=== PATIENT | male | born 1965 | race Caucasian/White ===

== ENCOUNTER → 2017-09-24 | Day surgery (SDC) | payer OTHER ==
[~2017-09-24] MED LIST: HYDROmorphone 2 MG/ML VIAL IV; LIDOCAINE 1% PF 2 ML VIAL. ID; LIDOCAINE 2% 100 MG/5 ML SYRINGE.; MORPHINE SULFATE 2 MG/ML DISP.SYRIN. IV; ONDANSETRON PF 4 MG/2 ML VIAL. IV; PROCHLORPERAZINE 10 MG/2 ML VIAL. IV; PROPOFOL 20 ML IV; fentaNYL PF VIAL 100 MCG/2 ML VIAL IV
[2017-09-24] MEDS: IV RINGERS,LACTATED 1000ML 1,000 ML IV ×2 (07:03)
[2017-09-24 08:11] LABS: POC GLUCOSE 110 mg/dL (70-99)
== END | disposition home or self-care (01) ==
LOC: SURG 06:59
DX: K29.50 Unspecified chronic gastritis without bleeding (principal); T18.2XXA Foreign body in stomach, initial encounter; E78.00 Pure hypercholesterolemia, unspecified; K21.9 Gastro-esophageal reflux disease without esophagitis; E66.9 Obesity, unspecified; F41.9 Anxiety disorder, unspecified; Z86.69 Personal history of other diseases of the nervous system and sense organs; Z98.890 Other specified postprocedural states; Z86.718 Personal history of other venous thrombosis and embolism; Z87.39 Personal history of other diseases of the musculoskeletal system and connective tissue; Z72.89 Other problems related to lifestyle; Z87.891 Personal history of nicotine dependence
CPT/HCPCS: 43235; 82962; J2704

== ENCOUNTER 2018-01-06 08:12 | Inpatient (IN) | payer OTHER ==
[2018-01-06 08:56] LABS: ADD MAN DIFF? NO
[2018-01-06 09:01] LABS: BASO % 1 % (0-3); EOS # 0.2 x10^3/uL (0.0-0.7); EOS % 4 % (0-3); HEMATOCRIT 45.2 % (39.0-53.0); HEMOGLOBIN 15.5 g/dL (13.0-17.5); LYMPH # 2.4 x10^3/uL (1.0-4.8); LYMPH % 42 % (24-48); MEAN CORPUSCULAR HEMOGLOBIN 30 pg (25-35); MEAN CORPUSCULAR HGB CONC 34 g/dL (31-37); MEAN CORPUSCULAR VOLUME 88 fL (79-100); MONO # 0.4 x10^3/uL (0.0-1.1); MONO % 7 % (0-9); NEUT # 2.6 x10^3uL (1.8-7.7); NEUT % 46 % (31-73); PLATELET COUNT 209 x10^3/uL (140-400); RED BLOOD COUNT 5.11 x10^6/uL (4.30-5.70); RED CELL DISTRIBUTION WIDTH 13.8 % (11.5-14.5); WHITE BLOOD COUNT 5.6 x10^3/uL (4.0-11.0)
[2018-01-06 09:05] LABS: BILIRUBIN,URINE NEGATIVE (NEG); CLARITY,URINE CLOUDY; COLOR,URINE YELLOW; GLUCOSE,URINE NEGATIVE (NEG); NITRITE,URINE NEGATIVE (NEG); PH,URINE 7.5; PROTEIN,URINE NEGATIVE (NEG-TRACE)
[2018-01-06] MEDS: IV NORMAL SALINE 1000ML BAG 1,000 ML IV ×2 (09:06→16:18)
[2018-01-06 09:13] LABS: INR 2.3 (0.8-1.1); PARTIAL THROMBOPLASTIN TIME 47 SEC (24-38); PROTHROMBIN TIME PATIENT 24.5 SEC (11.7-14.0)
[2018-01-06 09:13] LABS: ETHANOL < 10 mg/dL (0-10)
[2018-01-06 09:14] LABS: ANION GAP 8 (6-14); BLOOD UREA NITROGEN 18 mg/dL (8-26); BUN/CREATININE RATIO 12 (6-20); CALCIUM 9.3 mg/dL (8.5-10.1); CARBON DIOXIDE 27 mmol/L (21-32); CHLORIDE 107 mmol/L (98-107); CREATININE 1.5 mg/dL (0.7-1.3); GFR 49.1; GLUCOSE 96 mg/dL (70-99); POTASSIUM 4.3 mmol/L (3.5-5.1); SODIUM 142 mmol/L (136-145)
[2018-01-06 09:15] LABS: BARBITURATES NEG (NEG); BENZODIAZEPINES POS (NEG); CANNABINOIDS NEG (NEG); COCAINE NEG (NEG); METHADONE NEG (NEG); OPIATES POS (NEG); PHENCYCLIDINE NEG (NEG)
[2018-01-06 09:16] LABS: AMPHETAMINE/METHAMPHETAMINE NEG (NEG); ETHANOL, URINE NEG (NEG)
[2018-01-06 09:18] LABS: TROPONINI < 0.017 ng/mL (0.000-0.055)
[2018-01-06 09:19] LABS: ALBUMIN 3.7 g/dL (3.4-5.0); ALK PHOS 48 U/L (46-116); ALT (SGPT) 40 U/L (16-63); AST (SGOT) 28 U/L (15-37); CREATINE KINASE 247 U/L (39-308); TOTAL BILIRUBIN 0.7 mg/dL (0.2-1.0); TOTAL PROTEIN 7.3 g/dL (6.4-8.2)
[2018-01-06 09:21] LABS: AMORPHOUS SEDIMENT,UR PRESENT /HPF; BACTERIA,URINE 0 /HPF (0-FEW); RBC,URINE >40 /HPF (0-2); WBC,URINE 0 /HPF (0-4)
[2018-01-06 09:22] LABS: LACTIC ACID 0.9 mmol/L (0.4-2.0)
[2018-01-06 09:32] LABS: MYOGLOBIN 136 ng/mL (16-96)
[2018-01-06 09:41] LABS: NT-PRO BNP 49 pg/mL (0-124)
[2018-01-06] MEDS: fentaNYL PF VIAL 100 MCG/2 ML VIAL IV (10:04)
[2018-01-06] MEDS: KETOROLAC 30 MG/ML INJ. IV ×2 (11:07→21:35)
[2018-01-06] MEDS: TAMSULOSIN 0.4 MG CAP.ER.24H. PO (11:07)
[2018-01-06] MEDS ORDERED: ACETAMINOPHEN 325 MG TABLET. PO (11:30)
[2018-01-06] MEDS ORDERED: MORPHINE SULFATE 4 MG/ML DISP.SYRIN. IV (11:30)
[2018-01-06] MEDS ORDERED: ONDANSETRON PF 4 MG/2 ML VIAL. IV ×2 (11:30→12:30)
[2018-01-06 12:59] LABS: PLT ESTIMATE ADEQUATE (ADEQUATE)
[2018-01-06] MEDS: PREGABALIN 75 MG CAPSULE PO ×2 (13:00→21:35)
[2018-01-06] MEDS: PANTOPRAZOLE 40 MG TABLET.DR. PO (13:00)
[2018-01-06] MEDS: METOPROLOL TART IMMED RELEASE 50 MG TABLET. PO (13:00)
[2018-01-06] MEDS: RIVAROXABAN 10 MG TABLET. PO (13:00)
[2018-01-06] MEDS ORDERED: TOPIRAMATE 100 MG TABLET. PO (21:00)
[2018-01-06] MEDS: FENOFIBRATE,MICRONIZED 134 MG CAPSULE PO (21:35)
[2018-01-06] MEDS: TOPIRAMATE 100 MG TABLET. PO (21:35)
[2018-01-06] MEDS: tiZANidine 4 MG TABLET. PO (21:35)
[2018-01-06] MEDS: DULoxetine HCL 30 MG CAPSULE.DR PO (21:36)
[2018-01-07 04:33] LABS: ADD MAN DIFF? NO
[2018-01-07 04:42] LABS: BASO % 1 % (0-3); EOS # 0.2 x10^3/uL (0.0-0.7); EOS % 4 % (0-3); HEMATOCRIT 41.2 % (39.0-53.0); HEMOGLOBIN 14.3 g/dL (13.0-17.5); LYMPH # 2.8 x10^3/uL (1.0-4.8); LYMPH % 58 % (24-48); MEAN CORPUSCULAR HEMOGLOBIN 31 pg (25-35); MEAN CORPUSCULAR HGB CONC 35 g/dL (31-37); MEAN CORPUSCULAR VOLUME 89 fL (79-100); MONO # 0.4 x10^3/uL (0.0-1.1); MONO % 8 % (0-9); NEUT # 1.4 x10^3uL (1.8-7.7); NEUT % 30 % (31-73); PLATELET COUNT 174 x10^3/uL (140-400); RED BLOOD COUNT 4.66 x10^6/uL (4.30-5.70); RED CELL DISTRIBUTION WIDTH 14.1 % (11.5-14.5); WHITE BLOOD COUNT 4.8 x10^3/uL (4.0-11.0)
[2018-01-07 05:36] LABS: ANION GAP 9 (6-14); BLOOD UREA NITROGEN 18 mg/dL (8-26); CALCIUM 8.4 mg/dL (8.5-10.1); CARBON DIOXIDE 25 mmol/L (21-32); CHLORIDE 111 mmol/L (98-107); CREATININE 1.5 mg/dL (0.7-1.3); GFR 49.1; GLUCOSE 100 mg/dL (70-99); POTASSIUM 3.7 mmol/L (3.5-5.1); SODIUM 145 mmol/L (136-145)
[2018-01-07] MEDS: PANTOPRAZOLE 40 MG TABLET.DR. PO (08:00)
[2018-01-07] MEDS: PREGABALIN 75 MG CAPSULE PO (08:27)
[2018-01-07] MEDS: KETOROLAC 30 MG/ML INJ. IV (08:28)
[2018-01-07] MEDS: METOPROLOL TART IMMED RELEASE 50 MG TABLET. PO (09:00)
[2018-01-07] MEDS: TAMSULOSIN 0.4 MG CAP.ER.24H. PO (09:20)
== END 2018-01-07 14:10 | disposition home or self-care (01) | DRG 88 ==
LOC: ER 08:12 → 6 SOUTH 11:02
DX: S06.0X0A Concussion without loss of consciousness, initial encounter (principal); G93.40 Encephalopathy, unspecified; Z68.41 Body mass index [BMI] 40.0-44.9, adult; K31.84 Gastroparesis; N20.2 Calculus of kidney with calculus of ureter; K76.0 Fatty (change of) liver, not elsewhere classified; E66.9 Obesity, unspecified; E78.5 Hyperlipidemia, unspecified; G43.909 Migraine, unspecified, not intractable, without status migrainosus; G89.29 Other chronic pain; I10 Essential (primary) hypertension; M79.7 Fibromyalgia; R31.0 Gross hematuria; Z79.01 Long term (current) use of anticoagulants; Z79.891 Long term (current) use of opiate analgesic; Z82.49 Family history of ischemic heart disease and other diseases of the circulatory system; Z87.820 Personal history of traumatic brain injury; F32.9 Major depressive disorder, single episode, unspecified; Z86.718 Personal history of other venous thrombosis and embolism; V84.9XXA Unspecified occupant of special agricultural vehicle injured in nontraffic accident, initial encounter; Y93.89 Activity, other specified; Y92.89 Other specified places as the place of occurrence of the external cause; Y99.8 Other external cause status
CPT/HCPCS: 36415; 70450; 71045; 74018; 74176; 80048; 80053; 80307; 81001; 82550; 83605; 83874; 83880; 84484; 85025; 85610; 85730; 86850; 86900; 86901; 93005; 96361; 96374; 96375; 99285; 99285-25; G0480; J1885; J3010; J7030

== ENCOUNTER → 2018-03-18 | Outpatient (CLI) | payer OTHER | END | disposition home or self-care (01) | LOC: ECHO 10:44 | DX: R00.1 Bradycardia, unspecified (principal) | CPT/HCPCS: 93306 ==

== ENCOUNTER 2018-03-23 06:56 | Emergency (ER) | payer OTHER ==
[2018-03-23 07:42] LABS: ADD MAN DIFF? NO
[2018-03-23 07:44] LABS: BASO # 0.1 x10^3/uL (0.0-0.2); BASO % 1 % (0-3); EOS # 0.3 x10^3/uL (0.0-0.7); EOS % 5 % (0-3); HEMATOCRIT 47.4 % (39.0-53.0); HEMOGLOBIN 16.3 g/dL (13.0-17.5); LYMPH # 2.7 x10^3/uL (1.0-4.8); LYMPH % 51 % (24-48); MEAN CORPUSCULAR HEMOGLOBIN 31 pg (25-35); MEAN CORPUSCULAR HGB CONC 34 g/dL (31-37); MEAN CORPUSCULAR VOLUME 89 fL (79-100); MONO # 0.4 x10^3/uL (0.0-1.1); MONO % 8 % (0-9); NEUT # 1.8 x10^3uL (1.8-7.7); NEUT % 35 % (31-73); PLATELET COUNT 181 x10^3/uL (140-400); RED BLOOD COUNT 5.34 x10^6/uL (4.30-5.70); RED CELL DISTRIBUTION WIDTH 13.8 % (11.5-14.5); WHITE BLOOD COUNT 5.3 x10^3/uL (4.0-11.0)
[2018-03-23 07:52] LABS: INR 1.4 (0.8-1.1); PROTHROMBIN TIME PATIENT 16.5 SEC (11.7-14.0)
[2018-03-23 08:02] LABS: ANION GAP 8 (6-14); BLOOD UREA NITROGEN 15 mg/dL (8-26); BUN/CREATININE RATIO 12 (6-20); CALCIUM 9.1 mg/dL (8.5-10.1); CARBON DIOXIDE 28 mmol/L (21-32); CHLORIDE 104 mmol/L (98-107); CREATININE 1.3 mg/dL (0.7-1.3); GLUCOSE 126 mg/dL (70-99); POTASSIUM 3.6 mmol/L (3.5-5.1); SODIUM 140 mmol/L (136-145)
[2018-03-23 08:07] LABS: TROPONINI < 0.017 ng/mL (0.000-0.055)
[2018-03-23 08:14] LABS: ALBUMIN 3.8 g/dL (3.4-5.0); ALBUMIN/GLOBULIN RATIO 1.1 (1.0-1.7); ALK PHOS 48 U/L (46-116); ALT (SGPT) 53 U/L (16-63); AST (SGOT) 28 U/L (15-37); MAGNESIUM 1.8 mg/dL (1.8-2.4); THYROID STIM HORMONE (TSH) 1.996 uIU/mL (0.358-3.74); TOTAL BILIRUBIN 0.7 mg/dL (0.2-1.0); TOTAL PROTEIN 7.4 g/dL (6.4-8.2)
[2018-03-23 08:16] LABS: NT-PRO BNP 30 pg/mL (0-124)
[2018-03-23 08:16] LABS: CKMB INDEX 0.8 % (0-4); CKMB MASS 1.5 ng/mL (0.0-3.6); CREATINE KINASE 179 U/L (39-308)
== END 2018-03-23 08:53 | disposition home or self-care (01) ==
LOC: ER 06:56
DX: I49.3 Ventricular premature depolarization (principal); I10 Essential (primary) hypertension
CPT/HCPCS: 36415; 71045; 80053; 82553; 83735; 83880; 84100; 84439; 84443; 84484; 85025; 85610; 93005; 99285-25

== ENCOUNTER 2021-06-10 16:25 | Observation (INO) | payer OTHER ==
[~2021-06-10] VITALS: Ht 194.3 cm; Wt 164.0 kg
[~2021-06-10 16:25] MED LIST changes: +ALPR1TAB2 PO; +CEFD300C PO; +CYCL10TA2 PO; +DILT180C2 PO; +DULO60CA7 PO; +ERYT500T17 PO; +FENO145T3 PO; +GEMF600T20 PO; -HYDROmorphone 2 MG/ML VIAL IV; +LANS30CA66 PO; -LIDOCAINE 1% PF 2 ML VIAL. ID; -LIDOCAINE 2% 100 MG/5 ML SYRINGE.; +METO50TA6 PO; +MOME17SP NS; +MORP30TA83 PO; -MORPHINE SULFATE 2 MG/ML DISP.SYRIN. IV; -ONDANSETRON PF 4 MG/2 ML VIAL. IV; +OXYC10TA PO; +OXYC15TA61 PO; +PREG200C PO; -PROCHLORPERAZINE 10 MG/2 ML VIAL. IV; -PROPOFOL 20 ML IV; +RIVA10TA PO; +TIZA-58 PO; +TIZA4TAB2 PO; +TOBR5DRO6 NAS; +TOPI100T42 PO; -fentaNYL PF VIAL 100 MCG/2 ML VIAL IV
--- NOTE | 2021-06-10 16:39 | ED.ADGEN ---
Past Medical History Past Medical History: DVT, Fibromyalgia, Hypertension, Other Additional Past Medical Histor: gastroporesis Past Surgical History: Other Additional Past Surgical Histo: cervical fusion x2, sinus surgery x7, hernia repair, right knee MCL repair Smoking Status: Never Smoker Alcohol Use: None Drug Use: None General Adult HPI: HPI: Patient is a 55-year-old male who arrives via EMS after experiencing a syncopal episode while at his primary care physician's office. Patient was visiting his primary care physician for routine visit and reports in route he began feeling lightheaded and dizzy. Patient reports he exited his automobile and went to his primary care's office when he evidently lost consciousness. His is present and states he was probably unconscious for roughly 5 minutes. Upon regaining consciousness the patient was returned to his normal level of functioning. The patient states since yesterday he has had gross hematuria as well as suprapubic pain/pressure. The patient does take blood thinners and has a history of kidney stones. Patient states while he did pass out, he has not had any history of chest pain or shortness of air. He further denies any history of recent illness. Moreover he denies any neurological change from the standpoint of any sensory or motor compromise. Additionally he denies being dizzy now. He is awake, alert and nontoxic-appearing. Review of Systems: Review of Systems: Constitutional: Reports fatigue. Denies fever or chills. [] Eyes: Denies change in visual acuity. [] HENT: Denies nasal congestion or sore throat. [] Respiratory: Denies cough or shortness of breath. [] Cardiovascular: Reports syncope. Denies chest pain or edema. [] GI: Denies abdominal pain, nausea, vomiting, bloody stools or diarrhea. [] : Reports hematuria with suprapubic pain. Denies dysuria. [] Musculoskeletal: Denies back pain or joint pain. [] Integument: Denies rash. [] Neurologic: Denies headache, focal weakness or sensory changes. [] Endocrine: Denies polyuria or polydipsia. [] Lymphatic: Denies swollen glands. [] Psychiatric: Denies depression or anxiety. [] Allergies: Allergies: Physical Exam: PE: Constitutional: Well developed, well nourished, no acute distress, non-toxic appearance. [] HENT: Normocephalic, atraumatic, bilateral external ears normal, oropharynx moist, no oral exudates, nose normal. [] Eyes: PERRLA, EOMI, conjunctiva normal, no discharge. [] Neck: Normal range of motion, no tenderness, supple, no stridor. [] Cardiovascular:Heart rate regular rhythm, no murmur [] Lungs & Thorax: Bilateral breath sounds clear to auscultation [] Abdomen: Bowel sounds normal, soft, no tenderness, no masses, no pulsatile masses. [] Skin: Warm, dry, no erythema, no rash. [] Back: No tenderness, no CVA tenderness. [] Extremities: No tenderness, no cyanosis, no clubbing, ROM intact, no edema. [] Neurologic: Alert and oriented X 3, normal motor function, normal sensory function, no focal deficits noted. [] Psychologic: Affect normal, judgement normal, mood normal. [] Current Patient Data: Vital Signs: Vital Signs Date Time Temp Pulse Resp B/P (MAP) Pulse Ox O2 Delivery O2 Flow Rate FiO2 06/10/21 16:35 99.4 68 18 172/88 (116) 99 Room Air 99.4 EKG: EKG: [] EKG was obtained at 1630 hrs. reveals a normal sinus rhythm with ventricular rate 70 bpm. There is left axis deviation present. There are no acute ST/T wave changes to denote ischemia. Heart Score: C/O Chest Pain: No HEART Score for Chest Pain: HEART Score for Chest Pain Response (Comments) Value History Slighlty/Non-Suspicious 0 ECG Normal 0 Age >45 - < 65 1 Risk Factors 1 or 2 Risk Factors 1 Troponin < Normal Limit 0 Total 2 Risk Factors: Risk Factors: DM, Current or recent (<one month) smoker, HTN, HLP, family history of CAD, obesity. Risk Scores: Score 0 - 3: 2.5% MACE over next 6 weeks - Discharge Home Score 4 - 6: 20.3% MACE over next 6 weeks - Admit for Clinical Observation Score 7 - 10: 72.7% MACE over next 6 weeks - Early Invasive Strategies Radiology/Procedures: Radiology/Procedures: [] Impression: [facility] [address] [place] [address] IMAGING REPORT Signed PATIENT: THAO WEN ACCOUNT: [id number] : 1965 LOCATION: ER AGE: 55 SEX: M EXAM STATUS: REG ER ORD. PHYSICIAN: DAVIAN DUFFY DO REASON: syncope blood work 5:05 PROCEDURE: PORTABLE CHEST 1V EXAM: Chest, single view. HISTORY: Syncope. COMPARISON: 03/23/2018 FINDINGS: A frontal view of the chest is obtained. There is no infiltrate, pl eural effusion or pneumothorax. The heart is normal in size. There is cervical spinal fusion instrumentation. There is suspected lingular and left lower lobe atelectasis or scarring. IMPRESSION: No acute pulmonary finding. Electronically signed by: Prabha Dc MD (06/10/2021 5:19 PM) [id number] DICTATED and SIGNED BY: PRABHA DC MD DATE: 06/10/21 [id number] [facility] [address] [place] [address] IMAGING REPORT Signed PATIENT: THAO WEN ACCOUNT: [id number] : 1965 LOCATION: [address] [place] [address] AGE: 55 SEX: M EXAM STATUS: ADM IN ORD. PHYSICIAN: DAVIAN DUFFY DO REASON: hematuria/lower abd pain PROCEDURE: CT ABDOMEN PELVIS WO CONTRAST Examination: CT of the abdomen pelvis without contrast HISTORY: History of hematuria, lower abdominal pain COMPARISON: 01/06/2018 TECHNIQUE: Axial CT was of the abdomen pelvis are performed without contrast. Coronal and sagittal reformats are performed. Exposure: One or more of the following individualized dose reduction techniques were utilized for this examination: 1. Automated exposure control 2. Adjustment of the mA and/or kV according to patient size 3. Use of iterative reconstruction technique FINDINGS: Minimal bibasilar lung atelectasis No evidence of free air identified in the abdomen The evaluation of the solid organs is limited due to lack of IV contrast. The evaluation of bowel is limited due to lack of oral contrast. Mild decreased attenuation noted in the liver likely hepatic steatosis. The spleen, adrenals grossly appears unremarkable. The gallbladder is mildly distended. The stomach is mildly distended. Mild atrophic changes of the pancreas The stomach is mildly distended. The appendix is normal. Feces and gas noted in the colon Is mildly distended Cystic structures identified in the right kidney with largest measuring 5.4 cm probably renal cysts similar to prior exam. There is a 6 mm calculus identified in the right proximal ureter. Mild degenerative arthritic adrenals grossly IMPRESSION: 1. 6 mm calculus identified in the right proximal ureter with mild hydronephrosis. 2. Hepatic steatosis. 3. Right renal cysts similar to prior exam. Electronically signed by: Harpreet Rojas MD (06/10/2021 6:02 PM) [id number] DICTATED and SIGNED BY: HARPREET ROJAS MD DATE: 06/10/21 [id number] Course & Med Decision Making: Course & Med Decision Making Pertinent Labs and Imaging studies reviewed. (See chart for details) [] Dragon Disclaimer: Dragon Disclaimer: This electronic medical record was generated, in whole or in part, using a voice recognition dictation system. Departure Departure Impression: Primary Impression: Syncope and collapse Additional Impression: Ureterolithiasis Disposition: ADMITTED INPATIENT Admitting Physician: HIMPeg Condition: STABLE Referrals: MEG BLAIR MD (PCP) Problem Qualifiers DAVIAN DUFFY DO Jun 10, 2021 16:39
--- NOTE | 2021-06-10 16:49 | EKG ---
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
--- NOTE | 2021-06-10 17:22 | RAD ---
EXAM: Chest, single view. HISTORY: Syncope. COMPARISON: 03/23/2018 FINDINGS: A frontal view of the chest is obtained. There is no infiltrate, pleural effusion or pneumo thorax. The heart is normal in size. There is cervical spinal fusion instrumentation. There is suspec jomar lingular and left lower lobe atelectasis or scarring. IMPRESSION: No acute pulmonary finding. Electronically signed by: Prabha Kaminski MD (06/10/2021 5:19 PM) [id number]
[2021-06-10 17:39] LABS: BASO # 0.1 x10^3/uL (0.0-0.2); BASO % 1 % (0-3); EOS # 0.1 x10^3/uL (0.0-0.7); EOS % 2 % (0-3); HEMATOCRIT 49.5 % (39.0-53.0); HEMOGLOBIN 16.8 g/dL (13.0-17.5); LYMPH % 33 % (24-48); MEAN CORPUSCULAR HEMOGLOBIN 30 pg (25-35); MEAN CORPUSCULAR HGB CONC 34 g/dL (31-37); MEAN CORPUSCULAR VOLUME 88 fL (79-100); MONO # 0.4 x10^3/uL (0.0-1.1); MONO % 7 % (0-9); NEUT # 3.5 x10^3/uL (1.8-7.7); NEUT % 57 % (31-73); PLATELET COUNT 191 x10^3/uL (140-400); RED BLOOD COUNT 5.61 x10^6/uL (4.30-5.70); RED CELL DISTRIBUTION WIDTH 13.6 % (11.5-14.5); WHITE BLOOD COUNT 6.1 x10^3/uL (4.0-11.0)
[2021-06-10 17:47] LABS: GFR 77.6; POTASSIUM 4.1 mmol/L (3.5-5.1)
[2021-06-10 17:53] LABS: ALBUMIN 3.8 g/dL (3.4-5.0); TOTAL BILIRUBIN 1.4 mg/dL (0.2-1.0); TOTAL PROTEIN 7.7 g/dL (6.4-8.2)
--- NOTE | 2021-06-10 18:05 | RAD ---
Examination: CT of the abdomen pelvis without contrast HISTORY: History of hematuria, lower abdominal pain COMPARISON: 01/06/2018 TECHNIQUE: Axial CT was of the abdomen pelvis are performed without contrast. Coronal and sagittal re formats are performed. Exposure: One or more of the following individualized dose reduction techniques were utilized for thi s examination: 1. Automated exposure control 2. Adjustment of the mA and/or kV according to patient size 3. Use of iterative reconstruction technique FINDINGS: Minimal bibasilar lung atelectasis No evidence of free air identified in the abdomen The evaluation of the solid organs is limited due to lack of IV contrast. The evaluation of bowel is limited due to lack of oral contrast. Mild decreased attenuation noted in the liver likely hepatic st eatosis. The spleen, adrenals grossly appears unremarkable. The gallbladder is mildly distended. The stomach is mildly distended. Mild atrophic changes of the pancreas The stomach is mildly distended. The appendix is normal. Feces and gas noted in the colon Is mildly distended Cystic structures identified in the right kidney with largest measuring 5.4 cm probably renal cysts s imilar to prior exam. There is a 6 mm calculus identified in the right proximal ureter. Mild degenera tive arthritic adrenals grossly IMPRESSION: 1. 6 mm calculus identified in the right proximal ureter with mild hydronephrosis. 2. Hepatic steatosis. 3. Right renal cysts similar to prior exam. Electronically signed by: Harpreet Rojas MD (06/10/2021 6:02 PM) [id number]
[2021-06-10 18:09] LABS: BILIRUBIN,URINE NEGATIVE (NEG); CLARITY,URINE CLOUDY; COLOR,URINE RED; NITRITE,URINE NEGATIVE (NEG); PROTEIN,URINE 30 mg/dL (NEG-TRACE)
[2021-06-10] MEDS ORDERED: MORPHINE SULFATE 4 MG/ML INJ. IVP PRN (18:15)
[2021-06-10] MEDS ORDERED: ONDANSETRON PF 4 MG/2 ML VIAL. IVP PRN (18:15)
[2021-06-10] MEDS ORDERED: ONDANSETRON PF 4 MG/2 ML VIAL. IVP ONE (18:15)
[2021-06-10] MEDS ORDERED: ACETAMINOPHEN 325 MG TABLET. PO PRN (18:15)
[2021-06-10] MEDS: MORPHINE SULFATE 4 MG/ML INJ. IV PRN (18:20)
[2021-06-10 18:23] LABS: BACTERIA,URINE FEW /HPF (0-FEW); RBC,URINE TNTC /HPF (0-2)
[2021-06-10 19:10] VITALS: BP 171/100
[2021-06-10] MEDS ORDERED: MORP10CA2 PO (19:43)
[2021-06-10] MEDS ORDERED: TAMS0.4C97 PO (19:44)
[2021-06-10] MEDS ORDERED: NON FORMULARY ITEM (Tizanidine Hcl 2 MG) PO PRN (19:45)
[2021-06-10] MEDS ORDERED: oxyCODONE IR 5 MG TABLET PO PRN ×2 (20:00→20:45)
[2021-06-10] MEDS ORDERED: ALPRAZolam 1 MG TABLET PO PRN (20:30)
[2021-06-10] MEDS ORDERED: CHOL5000 PO (20:39)
[2021-06-10] MEDS: PREGABALIN 75 MG CAPSULE PO SCH (20:57)
[2021-06-10] MEDS: MORPHINE ER 15 MG TABLET.ER PO SCH (20:57)
[2021-06-10] MEDS: ERYTHROMYCIN BASE 250 MG TABLET PO SCH (20:58)
[2021-06-10] MEDS: tiZANidine 4 MG TABLET. PO PRN (20:58)
[2021-06-10] MEDS ORDERED: TOPIRAMATE 100 MG TABLET. PO SCH (21:00)
[2021-06-10] MEDS ORDERED: TAMSULOSIN 0.4 MG CAP.ER.24H. PO SCH (21:00)
[2021-06-10] MEDS ORDERED: FENOFIBRATE,MICRONIZED 134 MG CAPSULE PO SCH (21:00)
[2021-06-10] MEDS ORDERED: ALPRAZolam 1 MG TABLET PO SCH (21:00)
[2021-06-10] MEDS ORDERED: MORPHINE SULFATE 10 MG PO SCH (21:00)
--- NOTE | 2021-06-10 21:10 | HP ---
ADMIT DATE: 06/10/2021 CHIEF COMPLAINT: Syncope. HISTORY OF PRESENT ILLNESS: The patient is a pleasant 55-year-old male who is the spouse of one of our managing nurses, Annalisa Villa. Basically, he was at the primary care doctor's office today, Dr. Linda Cheek. Apparently, he had a syncopal episode there. His was with him. She states his pulse was very low and his blood pressure was quite low at 107/60. They called EMS. He was brought here for further evaluation. While here in the ER, he has been doing relatively well. His urine is showing some blood. We did some imaging, which is showing a 6 mm calculus in the right proximal ureter with mild hydronephrosis. He also has some hepatic steatosis. Apparently, the patient does have a history of renal stones, states that really has not been bothering him at all. He has passed some stones in the past. I discussed the case with ER physician and the patient's . We are going to go to admit the patient and do some cardiac monitoring. PAST MEDICAL HISTORY: DVT, chronic anticoagulation, fibromyalgia, hypertension, gastroparesis, chronic pain, cervical fusion, 7 sinus surgeries, hernia repair, right knee medial collateral ligament repair, GERD, depression, anxiety, hyperlipidemia and muscle spasms. ALLERGIES: MILNACIPRAN, PROPRANOLOL, QUETIAPINE AND TOPIRAMATE. FAMILY HISTORY: Noncontributory. 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 He is . His is an RN here at our facility. He does not drink, smoke or take drugs. He is currently on disability after his neck surgeries. MEDICATIONS: Reviewed. He is on 13 meds including erythromycin 500 b.i.d., tizanidine 4 mg every 6 hours p.r.n. muscle spasms, Xarelto 20 a day, fenofibrate 140 p.o. at bedtime, metoprolol 50 daily, Cardizem CD 180 daily, oxycodone 10 mg t.i.d., Lyrica 225 b.i.d., Topamax 100 p.o. daily at bedtime, Cymbalta 60 daily at bedtime, Xanax 1 t.i.d. and Prevacid 30 a day. REVIEW OF SYSTEMS: GENERAL: No history of weight change, weakness or fevers. SKIN: No bruising, hair changes or rashes. EYES: No blurred, double or loss of vision. NOSE AND THROAT: No history of nosebleeds, hoarseness or sore throat. HEART: No history of palpitations, chest pain or shortness of breath on exertion. LUNGS: Denies cough, hemoptysis, wheezing or shortness of breath. GASTROINTESTINAL: Denies changes in appetite, nausea, vomiting, diarrhea or constipation. GENITOURINARY: No history of frequency, urgency, hesitancy or nocturia. NEUROLOGIC: Denies history of numbness, tingling, tremor or weakness. PSYCHIATRIC: No history of panic, anxiety or depression. ENDOCRINE: No history of heat or cold intolerance, polyuria or polydipsia. EXTREMITIES: Denies muscle weakness, joint pain, pain on walking or stiffness. PHYSICAL EXAMINATION: VITALS: Within normal limits and are stable. GENERAL: No apparent distress. Alert and oriented. HEENT: Normal cephalic atraumatic, external auditory canals are patent EYES: Extraocular muscles are intact, pupils are equally round and reactive to light and accommodation MUSKULOSKELETAL: Well developed, well nourished, good range of motion ENDOCRINE: No thyromegaly was palpated LYMPHATICS: No cervical chain or axillary nodes were noted HEMATOPOIETIC: No bruising NECK: Supple, no JVD, no thyromegaly was noted. LUNGS: Clear to auscultation in all lung hol[place] without rhonchi or wheezing. HEART: RRR, S1, S2 present. Peripheral pulses intact, no obvious murmurs were noted. ABDOMEN: Soft, nontender. Positive bowel sounds no organomegaly, normal bowel sounds. EXTREMITIES: Without any cyanosis, clubbing, or edema. Pedal pulses intact, Homans sign is negative. NEUROLOGIC: Normal speech, normal tone. A and O x3, moves all extremities, no obvious focal deficits. PSYCHIATRIC: Normal affect, normal mood. Stable. SKIN: No ulcerations or rashes, good skin turgor, no jaundice. VASCULAR: Good capillary refill, neurovascular bundle appears to be intact. LABORATORY DATA: COVID testing is negative. Hematology is normal. Electrolytes are normal. AST slightly high at 53. ALT slightly high at 107. Urinalysis shows some blood. DIAGNOSTIC DATA: Chest x-ray negative. Abdominal CT shows a 6 mm calculus in the proximal right ureter with mild hydronephrosis. ASSESSMENT AND PLAN: Syncope in a middle-aged male with the above noted comorbidities. We will go ahead and admit the patient. Cardiac monitoring, home meds. DVT prophylaxis. Full code. Consult Cardiology, urine culture, p.r.n., Tylenol, p.r.n., morphine, p.r.n., Zofran. JO/STIVEN/OMKAR DR: Cheryle TID: [id number]
[2021-06-10 22:30] VITALS: BP 141/76
--- NOTE | 2021-06-10 23:29 | NUR ---
The patient, THAO WEN, 55 y/o, M admitted by FORTINO MACE III, DO, was given written information regarding hospital policies, unit procedures and cashier and salesperson. Valuables were checked and at bedside. Pt arrived to room 646 accompanied by , pt ambulated from chair to bed with standby assistance, automotive electrical helper applied to pt vs obtained blood pressure elevated pt c/o pain to back. Assessment completed poc explained to pt call light placed in reach will resume care and continue to monitor pt. Will place call to for further admission orders.
[2021-06-11 03:40] VITALS: BP 159/95
[2021-06-11 07:00] VITALS: BP 157/85
[2021-06-11] MEDS ORDERED: PANTOPRAZOLE 40 MG TABLET.DR. PO SCH (07:30)
[2021-06-11] MEDS: MORPHINE ER 15 MG TABLET.ER PO SCH (08:53)
[2021-06-11] MEDS: PREGABALIN 75 MG CAPSULE PO SCH (08:54)
[2021-06-11] MEDS ORDERED: RIVAROXABAN 10 MG TABLET. PO SCH (09:00)
[2021-06-11] MEDS ORDERED: METOPROLOL TART IMMED RELEASE 50 MG TABLET. PO SCH (09:00)
[2021-06-11] MEDS ORDERED: DULoxetine HCL 30 MG CAPSULE.DR PO SCH (09:00)
[2021-06-11] MEDS ORDERED: FLU VACC QUAD 21-22 (6MOS+) PF 0.5 ML SYRINGE. VAX IM ONE (09:00)
[2021-06-11] MEDS ORDERED: CHOLECALCIFEROL (VITAMIN D3) 5,000 UNIT CAPSULE PO SCH (09:00)
--- NOTE | 2021-06-11 09:37 | PDOC2 ---
KENY LEONARD CLASSIFICATION AND TREATMENT DIRECTOR 06/11/21 0937: CARDIAC CONSULT DATE OF CONSULT Date of Consult DATE: 06/11/21 TIME: 09:07 REASON FOR CONSULT Reason for Consult: syncope REFERRING PHYSICIAN Referring Physician: toma SOURCE Source: Chart review, Patient HISTORY OF PRESENT ILLNESS HISTORY OF PRESENT ILLNESS This is a pleasant 55 yo male admitted for complains of passing out. He was at his PCPs office for routine appt when while he was sitting around 3 PM he got dizzy and passed out. No symptoms of chest pain, SOA, palpitations, nasuea, diaphoresis. No vertigo and seizure like symptoms. Unclear how long he was unco nscious. Denies any prior n/v nor diarrhea. No prior infection. No pain. He did not drink enough fluids that day and had skip breakfast and lunch and only had 1 snack bar the whole day. No falls or any recent injury. He does have hx of DVT to RLE and LUE which he said it has been years ago but still on xarelto. He does take opioids and he could not ascertain how much he takes for chronic back pain and fibromyalgia. He does not take any BP meds. He has been vaccinated for covid-19. PAST MEDICAL HISTORY Cardiovascular: No pertinent hx Pulmonary: Other (MARLENE) CENTRAL NERVOUS SYSTEM: Other (No pertinent history) GI: GERD, Other (pancreatitis) Heme/Onc: Other (RLE and LUE DVT) Psych: Anxiety, Depression Musculoskeletal: Osteoarthritis Rheumatologic: Fibromyalgia Infectious disease: No pertinent hx ENT: No pertinent hx Renal/: Benign prostatic enlarg. Endocrine: No pertinent hx Dermatology: No pertinent hx PAST SURGICAL HISTORY Past Surgical History: Arthroscopy (right knee), Other (cervical decompression with plates) FAMILY HISTORY Family History: Heart Disease (mother) SOCIAL HISTORY Smoke: No ALCOHOL: occassional Drugs: None Lives: with Family CURRENT MEDICATIONS CURRENT MEDICATIONS Current Medications Medications (Trade) Dose Ordered Sig/Marleny Route PRN Reason Start Time Stop Time Status Last Admin Dose Admin Morphine Sulfate (Morphine Sulfate) 4 mg PRN Q2HR PRN IV PAIN 06/10/21 18:15 06/10/21 18:20 Ondansetron HCl (Zofran) 4 mg 1X ONCE IVP 06/10/21 18:15 06/10/21 18:16 DC 06/10/21 18:19 Rivaroxaban (Xarelto) 20 mg DAILY PO 06/11/21 09:00 06/11/21 08:53 Tizanidine HCl (Zanaflex) 4 mg PRN TID PRN PO MUSCLE SPASMS 06/10/21 19:45 06/10/21 20:58 Duloxetine HCl (Cymbalta) 60 mg DAILY PO 06/11/21 09:00 06/11/21 08:54 Erythromycin (E-Mycin) 500 mg BID PO 06/10/21 21:00 06/10/21 20:58 Fenofibrate (Lofibra) 134 mg QHS PO 06/10/21 21:00 06/10/21 20:57 Pantoprazole Sodium (Protonix) 40 mg DAILYAC PO 06/11/21 07:30 06/11/21 06:16 Pregabalin (Lyrica) 225 mg BID PO 06/10/21 21:00 06/11/21 08:54 Tamsulosin HCl (Flomax) 0.4 mg HS PO 06/10/21 21:00 06/10/21 20:57 Vitamin D (Vitamin D3) 5,000 unit DAILY PO 06/11/21 09:00 06/11/21 08:53 Oxycodone HCl (Roxicodone) 10 mg PRN Q6HRS PRN PO PAIN 06/10/21 20:45 06/11/21 03:43 Morphine Sulfate (Ms Contin) 15 mg BID PO 06/10/21 21:00 06/11/21 08:53 ALLERGIES ALLERGIES: Coded Allergies: milnacipran (Verified Allergy, Unknown, UNKNOWN, 06/10/21) propranolol (Verified Allergy, Unknown, UNKNOWN, 06/10/21) quetiapine (Verified Allergy, Unknown, UNKNOWN, 06/10/21) topiramate (Verified Allergy, Unknown, UNKNOWN, 06/10/21) PHYSICAL EXAM General: Alert, Oriented X3, Cooperative, No acute distress HEENT: Atraumatic, Mucous membr. moist/pink Lungs: Clear to auscultation, Normal air movement Heart: Regular rate (SR), Normal S1, Normal S2, No murmurs Abdomen: Soft, No tenderness Extremities: No cyanosis, Other (1+ bilateral LE ppitting edema) Skin: No breakdown, No significant lesion Neuro: Normal speech, Sensation intact Psych/Mental Status: Mental status NL, Mood NL MUSCULOSKELETAL: Osteoarthritic changes both hands VITALS/I&O VITALS/I&O: Vital Signs Date Time Temp Pulse Resp B/P (MAP) Pulse Ox O2 Delivery O2 Flow Rate FiO2 06/11/21 08:53 98 Room Air 06/11/21 07:00 97.6 59 19 157/85 (109) 97.6 I & O 06/10/21 06/10/21 06/11/21 15:00 23:00 07:00 Intake Total 960 ml Balance 960 ml LABS Lab: Laboratory Tests Test 06/10/21 17:05 06/10/21 17:20 06/10/21 18:00 SARS-CoV-2 Antigen (Rapid) Negative (NEGATIVE) White Blood Count 6.1 x10^3/uL (4.0-11.0) Red Blood Count 5.61 x10^6/uL (4.30-5.70) Hemoglobin 16.8 g/dL (13.0-17.5) Hematocrit 49.5 % (39.0-53.0) Mean Corpuscular Volume 88 fL (79-100) Mean Corpuscular Hemoglobin 30 pg (25-35) Mean Corpuscular Hemoglobin Concent 34 g/dL (31-37) Red Cell Distribution Width 13.6 % (11.5-14.5) Platelet Count 191 x10^3/uL (140-400) Neutrophils (%) (Auto) 57 % (31-73) Lymphocytes (%) (Auto) 33 % (24-48) Monocytes (%) (Auto) 7 % (0-9) Eosinophils (%) (Auto) 2 % (0-3) Basophils (%) (Auto) 1 % (0-3) Neutrophils # (Auto) 3.5 x10^3/uL (1.8-7.7) Lymphocytes # (Auto) 2.0 x10^3/uL (1.0-4.8) Monocytes # (Auto) 0.4 x10^3/uL (0.0-1.1) Eosinophils # (Auto) 0.1 x10^3/uL (0.0-0.7) Basophils # (Auto) 0.1 x10^3/uL (0.0-0.2) Sodium Level 142 mmol/L (136-145) Potassium Level 4.1 mmol/L (3.5-5.1) Chloride Level 105 mmol/L (98-107) Carbon Dioxide Level 28 mmol/L (21-32) Anion Gap 9 (6-14) Blood Urea Nitrogen 8 mg/dL (8-26) Creatinine 1.0 mg/dL (0.7-1.3) Estimated GFR (Cockcroft-Gault) 77.6 BUN/Creatinine Ratio 8 (6-20) Glucose Level 96 mg/dL (70-99) Calcium Level 9.0 mg/dL (8.5-10.1) Total Bilirubin 1.4 mg/dL (0.2-1.0) H Aspartate Amino Transferase (AST) 53 U/L (15-37) H Alanine Aminotransferase (ALT) 108 U/L (16-63) H Alkaline Phosphatase 37 U/L (46-116) L Troponin I Quantitative < 0.017 ng/mL (0.000-0.055) Total Protein 7.7 g/dL (6.4-8.2) Albumin 3.8 g/dL (3.4-5.0) Albumin/Globulin Ratio 1.0 (1.0-1.7) Urine Collection Type Void Urine Color Red Urine Clarity Cloudy Urine pH 8.0 (<5.0-8.0) Urine Specific [place] 1.010 (1.000-1.030) Urine Protein 30 mg/dL (NEG-TRACE) Urine Glucose (UA) Negative mg/dL (NEG) Urine Ketones (Stick) Negative mg/dL (NEG) Urine Blood Large (NEG) Urine Nitrite Negative (NEG) Urine Bilirubin Negative (NEG) Urine Urobilinogen Dipstick 1.0 mg/dL (0.2 mg/dL) Urine Leukocyte Esterase Trace (NEG) Urine RBC Tntc /HPF (0-2) Urine WBC 1-4 /HPF (0-4) Urine Squamous Epithelial Cells Few /LPF Urine Bacteria Few /HPF (0-FEW) Laboratory Tests 06/10/21 17:20 Laboratory Tests 06/10/21 17:20 ECHOCARDIOGRAM ECHOCARDIOGRAM <Conclusion> The left ventricular systolic function is normal and the ejection fraction is within normal range. The Ejection Fraction is 50-55%. There is grossly normal LV segmental wall motion. Septal motion suggestive of conduction defect. Technically difficult study. DATE: 03/18/18 1449 ASSESSMENT/PLAN ASSESSMENT/PLAN 1. Syncope: unclear etiology 2. Morbid obesity 3. Fibromyalgia 4. Hepatic steatosis 5. UTI with right ureterolithiasis with mild hydronephrosis: per PCP 6. Chronic pain with opioid use 7. Hx of RLE and LUE DVT: at least 3 yrs ago and still on xarelto 8. HTN Recommendations 1. TTE 2. So far no arrhythmias noted. I do suspect hypoglycemia and possibly medications could have contributed to his syncope. He did not drink much that day and had only 1 snack bar before 3 PM appt with his PCP. MCOT is a consideration 3. Will need HBPM for BP regimen coverage. ESPINOZA HYATT MD 06/11/21 1638: CARDIAC CONSULT ASSESSMENT/PLAN ASSESSMENT/PLAN Pt. seen and examined. Agree with above VRT MECHANIC note. Supportive care. Echo wnl. Outpt event monitoring and f/u. Thanks KENY LEONARD APRN Jun 11, 2021 09:37 ESPINOZA HYATT MD Jun 11, 2021 16:38
[2021-06-11] MEDS: ERYTHROMYCIN BASE 250 MG TABLET PO SCH (10:08)
[2021-06-11 11:00] VITALS: BP 118/60
--- NOTE | 2021-06-11 11:30 | NUR ---
SS following for discharge planning. SS reviewed pt chart and discussed with pt RN. Pt is from home with spouse and is currently on room air. Cardiology consulted. ECHO ordered. COVID19 negative. Discharge plan is currently to home when medically ready for discharge. SS will continue to follow for discharge planning.
[2021-06-11 15:00] VITALS: BP 146/82
[2021-06-11] MEDS: tiZANidine 4 MG TABLET. PO PRN (15:31)
[2021-06-11] MEDS: MORPHINE SULFATE 4 MG/ML INJ. IV PRN (15:32)
--- NOTE | 2021-06-11 15:33 | CARD ---
MR#: [id number] Date of Study: 06/11/2021 Ordering Physician: KENY LEONARD, Referring Physician: KENY LEONARD, Tech: Chantale Arriaga, [facility] APPROVED REPORT EXAM: Two-dimensional and M-mode echocardiogram with Doppler and color Doppler. Other Information Quality : AverageHR: 72bpm Technically limited study due to body habitus. INDICATION Syncope RISK FACTORS Hyperlipidemia 2D DIMENSIONS RVDd3.0 (2.9-3.5cm)Left Atrium(2D)4.4 (1.6-4.0cm) IVSd1.0 (0.7-1.1cm)Aortic Root(2D)3.4 (2.0-3.7cm) LVDd5.9 (3.9-5.9cm)LVOT Diameter2.1 (1.8-2.4cm) PWd1.3 (0.7-1.1cm)LVDs4.0 (2.5-4.0cm) FS (%) 31.6 %SV101.6 ml LVEF(%)58.7 (>50%) Aortic Valve AoV Peak Reji.126.6cm/sAoV VTI24.5cm AO Peak GR.6.4mmHgLVOT Peak Reji.96.3cm/s LVOT VTI 17.88cmAO Mean GR.4mmHg DAYNA (VMAX)1.97ug1YLY (VTI)2.48cm2 Mitral Valve MV E Izqomkdk46.0cm/sMV DECEL XJIT767zg MV A Wqvlkiox93.4cm/sMV E Mean Gr.2mmHg MV PSA21agR/A Ratio1.1 MVA (PHT)3.01cm2 TDI E/Lateral E'5.9E/Medial E'8.8 Pulmonary Valve PV Peak Nfkxmmzt540.0cm/sPV Peak Grad.5mmHg Tricuspid Valve TR P. Fudihdvw195ph/sRAP AHCPLTBU9tbJh TR Peak Gr.24oaMvHJTQ14flTy LEFT VENTRICLE The left ventricle is normal size. There is borderline to mild concentric left ventricular hypertroph y. The left ventricular systolic function is normal and the ejection fraction is within normal range. The Ejection Fraction is 50-55%. There is normal LV segmental wall motion. The left ventricular feldman tolic function and filling is normal for age. RIGHT VENTRICLE The right ventricle is mildly dilated. There is normal right ventricular wall thickness. The right ve ntricular systolic function is normal. ATRIA The left atrium size is normal. The right atrium is mildly dilated. The interatrial septum is intact with no evidence for an atrial septal defect or patent foramen ovale as noted on 2-D or Doppler imagi ng. AORTIC VALVE The aortic valve is normal in structure and function. Doppler and Color Flow revealed no significant aortic regurgitation. There is no significant aortic valvular stenosis. Calculated aortic valve area is 3.24 cm2 with maximum pressure gradient of 8 mmHg and mean pressure gradient of 5 mmHg. MITRAL VALVE The mitral valve is normal in structure and function. There is no evidence of mitral valve prolapse. There is no mitral valve stenosis. Doppler and Color Flow revealed no mitral valve regurgitation note d. TRICUSPID VALVE The tricuspid valve is normal in structure and function. Doppler and Color Flow revealed trace tricus pid regurgitation with an estimated PAP of 25 mmHg. There is no tricuspid valve stenosis. PULMONIC VALVE The pulmonic valve is not well visualized. Doppler and Color Flow revealed trace pulmonic valvular re gurgitation. There is no pulmonic valvular stenosis. GREAT VESSELS The aortic root is normal in size. The IVC was not visualized. PERICARDIAL EFFUSION There is no evidence of significant pericardial effusion. Critical Notification Critical Value: No <Conclusion> The left ventricular systolic function is normal and the ejection fraction is within normal range. Th e Ejection Fraction is 50-55%. There is normal LV segmental wall motion. Doppler and Color Flow revealed trace tricuspid regurgitation with an estimated PAP of 25 mmHg. Signed by : Martell Epstein, Electronically Approved : 06/11/2021 15:33:03
--- NOTE | 2021-06-11 17:00 | NUR ---
Discharge Note: THAO WEN J6 [facility] Discharge instructions and discharge home medications reviewed with Patient and a copy given. All questions have been answered and understanding verbalized. The following instructions and handouts were given: chest pain, syncope IV discontinued, no complications Patient discharged to home with self care. All belongings taken home with patient.
== END 2021-06-11 17:00 | disposition home or self-care (01) ==
LOC: ER 16:25 → 6 SOUTH 16:50
PROVIDERS: ADMIT Internal Medicine; ATTEND Internal Medicine
DX: R55 Syncope and collapse (principal); Z20.822 Contact with and (suspected) exposure to COVID-19; I10 Essential (primary) hypertension; K31.84 Gastroparesis; K21.9 Gastro-esophageal reflux disease without esophagitis; F41.9 Anxiety disorder, unspecified; F32.9 Major depressive disorder, single episode, unspecified; E78.5 Hyperlipidemia, unspecified; G89.29 Other chronic pain; E66.01 Morbid (severe) obesity due to excess calories; N20.1 Calculus of ureter; K76.0 Fatty (change of) liver, not elsewhere classified; G47.33 Obstructive sleep apnea (adult) (pediatric); M79.7 Fibromyalgia; M19.90 Unspecified osteoarthritis, unspecified site; N28.1 Cyst of kidney, acquired; N13.6 Pyonephrosis; Z23 Encounter for immunization; Z79.01 Long term (current) use of anticoagulants; Z79.891 Long term (current) use of opiate analgesic; Z86.718 Personal history of other venous thrombosis and embolism; Z79.899 Other long term (current) drug therapy; Z98.890 Other specified postprocedural states; Z87.442 Personal history of urinary calculi; Z68.41 Body mass index [BMI] 40.0-44.9, adult
CPT/HCPCS: 36415; 71045; 74176; 80053; 81001; 84484; 85025; 87086; 87426; 90471; 90686; 93005; 93306; 96374; 96375; 96376; 99285; G0378; J2270; J2405; U0003; U0005; G0379

== ENCOUNTER → 2021-06-19 | Outpatient (CLI) | payer OTHER ==
[2021-06-11 15:00] VITALS: BP 146/82
[~2021-06-19] MED LIST changes: +CHOL5000 PO; +MORP10CA2 PO; +TAMS0.4C97 PO
--- NOTE | 2021-06-19 14:03 | CARD ---
MR#: [id number] Date of Study: 06/19/2021 Ordering Physician: ESPINOZA HYATT, Referring Physician: ESPINOZA HYATT, Tech: APPROVED REPORT EXAM Loop Recorder After appropriate informed consent the patient was brought to the procedure suite and the left chest was prepped and draped in usual sterile fashion. Under 1% lidocaine local anesthesia the left parast ernal space was infiltrated. Next a 0.5 inch incision was made and a [employer] implantab le loop recorder with serial number [id number] was implanted. Appropriate amplitudes of 0.25 were o btained. The incision was then closed with Steri-Strips. No acute complications noted. INDICATIONS Recurrent syncope CONCLUSION 1. Successful implantation of a [employer] loop recorder for recurrent syncope Signed by : Espinoza Hyatt, Electronically Approved : 06/19/2021 14:03:08
== END | disposition home or self-care (01) ==
LOC: LINQ 13:00
PROVIDERS: ATTEND Internal Medicine Cardiovascular Disease
DX: R55 Syncope and collapse (principal); I10 Essential (primary) hypertension; E78.00 Pure hypercholesterolemia, unspecified; G47.30 Sleep apnea, unspecified; K21.9 Gastro-esophageal reflux disease without esophagitis; E66.9 Obesity, unspecified; M19.90 Unspecified osteoarthritis, unspecified site; F41.9 Anxiety disorder, unspecified; Z87.891 Personal history of nicotine dependence; Z79.899 Other long term (current) drug therapy; Z98.890 Other specified postprocedural states; Z72.89 Other problems related to lifestyle; Z88.8 Allergy status to other drugs, medicaments and biological substances
CPT/HCPCS: 33285; C1764